=== PATIENT | female | born 1975 | race Caucasian/White ===

== ENCOUNTER 2017-12-21 02:20 | Inpatient (IN) | payer OTHER ==
[~2017-12-21] VITALS: Ht 157.5 cm; Wt 64.6 kg
[2017-12-21] VITALS (7 sets, daily range): BP systolic 116–143; BP diastolic 60–82; PULSE 74–88; RESP 12–20; TEMP 98–98.8; O2SAT 96–100
[~2017-12-21 02:20] MED LIST: Z.0.NO CURRENT MEDS
--- NOTE | 2017-12-21 04:49 | PD ---
HPI Chief Complaint: Patten act Time Seen by Provider: 04:35 Travel History International Travel<30 days: No Contact w/Intl Traveler<30days: No Traveled to known affect area: No History of Present Illness HPI 42-year-old female presents emergency department under Patten act by PD. The patient had contacted police advising in them her is trying to kill her with arsenic and heroin. She states that she is concerned that he is ever socializing in the house as well as putting in her drinks and food. Patient states that they are currently going through divorce. Her 2 children live at her parents house. Patient denies any suicidal or homicidal ideation. No toxic ingestions. She denies any medical complaints. She denies alcohol, drugs, tobacco. Denies . Patient does complain of increased urinary frequency and some urinary incontinence. PFSH Past Medical History Medical History: Denies Significant Hx Tetanus Vaccination: < 5 Years Past Surgical History Narrative Surgical Cholecystectomy, 1, uterine ablation Social History Alcohol Use: No Tobacco Use: No Substance Use: No Allergies-Medications (Allergen,Severity, Reaction): Coded Allergies: iodine (Unverified Allergy, Severe, hives and shortness of breath, 06/12/17 ) potassium iodide (Unverified Allergy, Severe, hives and shortness of breath, 06/12/17) povidone-iodine (Unverified Allergy, Severe, hives and shortness of breath , 06/12/17) shellfish derived (Unverified Allergy, Severe, hives, 06/12/17) sodium iodide (Unverified Allergy, Severe, hives and shortness of breath, 06/12/17) sodium iodide (Unverified Allergy, Severe, hives and shortness of breath, 06/12/17) Reported Meds & Prescriptions Reported Meds & Active Scripts Active No Active Prescriptions or Reported Medications Review of Systems General / Constitutional: No: Fever Eyes: No: Visual changes HENT: No: Headaches Cardiovascular: No: Chest Pain or Discomfort Respiratory: No: Shortness of Breath Gastrointestinal: No: Abdominal Pain Genitourinary: Positive: Urgency, Frequency, Incontinence, No: Dysuria Musculoskeletal: No: Pain Skin: No Rash Neurologic: No: Weakness Psychiatric: Positive: Anxiety, No: Depression, Suicidal Ideations, Disorder of Thought, Mood Disorder, Substance Abuse, Homicidal Ideation Endocrine: No: Polydipsia Hematologic/Lymphatic: No: Easy Bruising Physical Exam Narrative GENERAL: Well-nourished, well-developed patient. SKIN: Warm and dry. HEAD: Normocephalic and atraumatic. EYES: No scleral icterus. No injection or drainage. ENT: No nasal drainage noted. Mucous membranes pink. Airway patent. NECK: Supple, trachea midline. Moves head freely without obvious discomfort. CARDIOVASCULAR: Regular rate and rhythm without murmurs, gallops, or rubs. RESPIRATORY: Breath sounds equal bilaterally. No accessory muscle use. GASTROINTESTINAL: Abdomen soft, non-tender, nondistended. EXTREMITIES: No cyanosis or edema. BACK: Nontender without obvious deformity. No CVA tenderness. NEURO: Patient is alert and oriented. no sensorimotor deficits. Nonfocal. Normal speech. PSYCH: Patient is delusional. Patient states that her is aerosolizing heroin and arsenic. Data Data Last Documented VS Vital Signs Date Time Temp Pulse Resp B/P (MAP) Pulse Ox O2 Delivery O2 Flow Rate FiO2 12/21/17 04:47 98.7 74 12 119/61 (80) 96 12/21/17 04:45 Room Air Orders Orders Complete Blood Count With Diff (12/21/17 04:42) Comprehensive Metabolic Panel (12/21/17 04:42) Thyroid Stimulating Hormone (12/21/17 04:42) Urinalysis - C+S If Indicated (12/21/17 04:42) Ed Urine Pregnancytest Poc (12/21/17 04:42) Psych Screen (12/21/17 04:42) Drug Screen, Random Urine (12/21/17 04:42) Alcohol (Ethanol) (12/21/17 04:42) Labs Laboratory Tests Test 12/21/17 04:58 White Blood Count 13.4 TH/MM3 Red Blood Count 4.63 MIL/MM3 Hemoglobin 14.0 GM/DL Hematocrit 40.3 % Mean Corpuscular Volume 87.1 FL Mean Corpuscular Hemoglobin 30.3 PG Mean Corpuscular Hemoglobin Concent 34.8 % Red Cell Distribution Width 13.1 % Platelet Count 225 TH/MM3 Mean Platelet Volume 9.6 FL Neutrophils (%) (Auto) 60.1 % Lymphocytes (%) (Auto) 30.1 % Monocytes (%) (Auto) 6.1 % Eosinophils (%) (Auto) 3.0 % Basophils (%) (Auto) 0.7 % Neutrophils # (Auto) 8.0 TH/MM3 Lymphocytes # (Auto) 4.0 TH/MM3 Monocytes # (Auto) 0.8 TH/MM3 Eosinophils # (Auto) 0.4 TH/MM3 Basophils # (Auto) 0.1 TH/MM3 CBC Comment DIFF FINAL Differential Comment Urine Color YELLOW Urine Turbidity CLEAR Urine pH 6.0 Urine Specific [place] 1.027 Urine Protein TRACE mg/dL Urine Glucose (UA) NEG mg/dL Urine Ketones NEG mg/dL Urine Occult Blood NEG Urine Nitrite NEG Urine Bilirubin NEG Urine Urobilinogen LESS THAN 2.0 MG/DL Urine Leukocyte Esterase NEG Urine RBC 2 /hpf Urine WBC 1 /hpf Urine Squamous Epithelial Cells 1 /hpf Urine Calcium Oxalate Crystals OCC /hpf Urine Bacteria RARE /hpf Urine Hyaline Casts 1 /lpf Urine Mucus MOD /lpf Microscopic Urinalysis Comment CULT NOT INDICATED Blood Urea Nitrogen 10 MG/DL Creatinine 0.77 MG/DL Random Glucose 90 MG/DL Total Protein 7.2 GM/DL Albumin 3.2 GM/DL Calcium Level 8.0 MG/DL Alkaline Phosphatase 117 U/L Aspartate Amino Transf (AST/SGOT) 12 U/L Alanine Aminotransferase (ALT/SGPT) 17 U/L Total Bilirubin LESS THAN 0.1 MG/DL Sodium Level 138 MEQ/L Potassium Level 3.4 MEQ/L Chloride Level 104 MEQ/L Carbon Dioxide Level 26.0 MEQ/L Anion Gap 8 MEQ/L Estimat Glomerular Filtration Rate 83 ML/MIN Thyroid Stimulating Hormone 3rd Gen 1.510 uIU/ML Urine Opiates Screen POS Urine Barbiturates Screen NEG Urine Amphetamines Screen NEG Urine Benzodiazepines Screen NEG Urine Cocaine Screen NEG Urine Cannabinoids Screen NEG Ethyl Alcohol Level LESS THAN 3 MG/DL MDM Medical Decision Making Medical Screen Exam Complete: Yes Emergency Medical Condition: Yes Medical Record Reviewed: Yes Interpretation(s) Laboratory Tests Test 12/21/17 04:58 White Blood Count 13.4 TH/MM3 Red Blood Count 4.63 MIL/MM3 Hemoglobin 14.0 GM/DL Hematocrit 40.3 % Mean Corpuscular Volume 87.1 FL Mean Corpuscular Hemoglobin 30.3 PG Mean Corpuscular Hemoglobin Concent 34.8 % Red Cell Distribution Width 13.1 % Platelet Count 225 TH/MM3 Mean Platelet Volume 9.6 FL Neutrophils (%) (Auto) 60.1 % Lymphocytes (%) (Auto) 30.1 % Monocytes (%) (Auto) 6.1 % Eosinophils (%) (Auto) 3.0 % Basophils (%) (Auto) 0.7 % Neutrophils # (Auto) 8.0 TH/MM3 Lymphocytes # (Auto) 4.0 TH/MM3 Monocytes # (Auto) 0.8 TH/MM3 Eosinophils # (Auto) 0.4 TH/MM3 Basophils # (Auto) 0.1 TH/MM3 CBC Comment DIFF FINAL Differential Comment Urine Color YELLOW Urine Turbidity CLEAR Urine pH 6.0 Urine Specific [place] 1.027 Urine Protein TRACE mg/dL Urine Glucose (UA) NEG mg/dL Urine Ketones NEG mg/dL Urine Occult Blood NEG Urine Nitrite NEG Urine Bilirubin NEG Urine Urobilinogen LESS THAN 2.0 MG/DL Urine Leukocyte Esterase NEG Urine RBC 2 /hpf Urine WBC 1 /hpf Urine Squamous Epithelial Cells 1 /hpf Urine Calcium Oxalate Crystals OCC /hpf Urine Bacteria RARE /hpf Urine Hyaline Casts 1 /lpf Urine Mucus MOD /lpf Microscopic Urinalysis Comment CULT NOT INDICATED Blood Urea Nitrogen 10 MG/DL Creatinine 0.77 MG/DL Random Glucose 90 MG/DL Total Protein 7.2 GM/DL Albumin 3.2 GM/DL Calcium Level 8.0 MG/DL Alkaline Phosphatase 117 U/L Aspartate Amino Transf (AST/SGOT) 12 U/L Alanine Aminotransferase (ALT/SGPT) 17 U/L Total Bilirubin LESS THAN 0.1 MG/DL Sodium Level 138 MEQ/L Potassium Level 3.4 MEQ/L Chloride Level 104 MEQ/L Carbon Dioxide Level 26.0 MEQ/L Anion Gap 8 MEQ/L Estimat Glomerular Filtration Rate 83 ML/MIN Thyroid Stimulating Hormone 3rd Gen 1.510 uIU/ML Urine Opiates Screen POS Urine Barbiturates Screen NEG Urine Amphetamines Screen NEG Urine Benzodiazepines Screen NEG Urine Cocaine Screen NEG Urine Cannabinoids Screen NEG Ethyl Alcohol Level LESS THAN 3 MG/DL Differential Diagnosis MDM: High Differential diagnoses: Schizophrenia, schizoaffective disorder, bipolar, anxiety, depression, adjustment reaction, mood disorder NOS, ODD, depressive disorder NOS, dementia, dementia with agitation, psychosis NOS, substance induced mood disorder, DMDD, Asperger syndrome, infection,electrolyte abnormality, malingering. Narrative Course Mental health screening discussed with the patient. Psychiatric screen ordered. The patient has been medically cleared. This is medical clearance for psychiatric admission Diagnosis Primary Impression: Medical clearance for psychiatric admission Scripts No Active Prescriptions or Reported Meds Condition: Stable Willem Gooden Dec 21, 2017 04:49
[2017-12-21 05:33] LABS: BASOPHIL # 0.1 TH/MM3 (0-0.2); BASOPHIL % 0.7 % (0.0-2.0); EOSINOPHIL # 0.4 TH/MM3 (0-0.4); HEMATOCRIT 40.3 % (35.0-46.0); LYMPH % 30.1 % (9.0-44.0); MEAN CELL VOLUME 87.1 FL (80.0-100.0); MEAN CORPUSCULAR HEMOGLOBIN 30.3 PG (27.0-34.0); MEAN CORPUSCULAR HGB CONC 34.8 % (32.0-36.0); MEAN PLATELET VOLUME 9.6 FL (7.0-11.0); MONO % 6.1 % (0.0-8.0); MONOCYTE # 0.8 TH/MM3 (0-0.9); NEUT % 60.1 % (16.0-70.0); PLATELET COUNT 225 TH/MM3 (150-450); RED BLOOD COUNT 4.63 MIL/MM3 (4.00-5.30); RED CELL DISTRIBUTION WIDTH 13.1 % (11.6-17.2); WHITE BLOOD COUNT 13.4 TH/MM3 (4.0-11.0)
[2017-12-21 05:50] LABS: BACTERIA, URINE RARE /hpf; BILIRUBIN, URINE NEG (NEG); BLOOD, URINE NEG (NEG); CALCIUM OXALATE CRYSTALS,URINE OCC /hpf; GLUCOSE,URINE NEG (NEG); HYALINE CAST, URINE 1 /lpf (RARE); KETONE, URINE NEG (NEG); MUCUS URINE MOD /lpf (OCC); NITRITE,URINE NEG (NEG); SQUAMOUS EPITHELIAL CELL URINE 1 /hpf (0-5); URINE COLOR YELLOW (YELLW/STRAW); URINE LEUKOCYTE ESTERASE NEG (NEG)
[2017-12-21 06:02] LABS: ALBUMIN 3.2 GM/DL (3.4-5.0); AST (GOT) 12 U/L (15-37); BLOOD UREA NITROGEN 10 MG/DL (7-18); CHLORIDE 104 MEQ/L (98-107); CREATININE 0.77 MG/DL (0.50-1.00); GLOMERULAR FILTRATION RATE 83 ML/MIN (>89); GLUCOSE,RANDOM 90 MG/DL (74-106); SODIUM (NA) 138 MEQ/L (136-145)
[2017-12-21 06:12] LABS: ALKALINE PHOSPHATASE 117 U/L (45-117); ALT (GPT) 17 U/L (10-53); TOTAL BILIRUBIN ADULT LESS THAN 0.1 MG/DL (0.2-1.0); TOTAL PROTEIN 7.2 GM/DL (6.4-8.2)
--- NOTE | 2017-12-21 13:51 | PD ---
History of Present Illness Chief Complaint: Psychiatric Symptoms Time Seen by Provider: 15:30 Travel History International Travel<30 Days: No Contact w/Intl Traveler<30days: No Known affected area: No Legal Status Legal Status: Patten Act Patten Act Signed By: Ira De Oliveira History of Present Illness: History of Present Illness HPI 42-year-old , , female with no reported previous psychiatric history who presents emergency department under Patten act by PD. The Patten act alleges that the patient contacted the police to inform them that her was trying to kill her with heroin and arsenic. It also alleges that while they were there she stated that he was in back of them and that if they didn't help her she would kill herself. While the patient was in [facility] deputies arrived and served her with a [place] order petition by her mother and her . The order alleges some amongst other things that the patient is delusional, accuses and mother trying to kill her, that she has stopped all social activity including paying her bills, doing laundry, cooking and going to work. That she takes when he showers a day, smokes on believable amounts of cigarettes a day, not eating right were sleeping right, losing weight , believes that the [employer] has a report of the allegedly poisoning. The patient is seen in [facility]. She is alert and oriented. She is irritable and only minimally cooperative with this interview. She continues to believe that she is being poisoned by her and that he is having an affair. She denies suicidal or homicidal ideation. Denies feeling depressed. Denies any hallucinations. She is demanding to be discharge and refused to answer anymore questions. She has remained in her room isolative with no interaction with staff. EMR reviewed. No previous contact with [facility] psychiatry Department. Toxicology positive for opiates which are prescribed. Telephone call to Rajinder Mercado, patient's to obtain further information at [phone]. He states that they have been for over 20 years and that they had a brief separation over the summer. He admitted that he had an affair but that it was over and that him and the patient has been trying to work it out. He reports that for the past 2 weeks the patient has been increasingly agitated, not sleeping well, increase in the amount of arguing with him, stopped showing up for work and was therefore fired, stop pain the bills, told the family that she had cancer. He also states that she believes that the light bulbs in the house are cameras and that are recording her and she has tried to take all the light bulbs out of the house to bring him to the police station. She also believes that there are explosives in the home. The patient's mother, Juanis called the unit and I spoke with her. She tells me that the patient has no previous psychiatric history. In September she remembers the patient told her she saw Dr. Costello and was prescribed some medication but she is not aware of what arie was prescribed. She states that the patient has been recording herself and taking pictures of herself and would spend long hours just looking at that picture, that she takes multiple showers per day. That she talks about hearing a baby crying in the house, she believes that she is having an affair with her , not doing anything in the house and just staying in bed all day. [facility] Past Medical History Medical History: Denies Significant Hx Tetanus Vaccination: < 5 Years ?: Not Past Surgical History Surgical History: No Previous Surgery Psychiatric History Psychiatric History Hx Psychiatric Treatment: No previous history reported. No history of suicide attempts. History of Inpatient Treatment: No Guns or firearms in home: No Social History female. Lives with and -2 children. Currently unemployed. 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 Hx Alcohol Use: No Hx Tobacco Use: No Hx Substance Use: No Hx of Substance Use Treatment: No Family Psychiatric History Negative Allergies-Medications (Allergen,Severity, Reaction): Coded Allergies: iodine (Unverified Allergy, Severe, hives and shortness of breath, 06/12/17 ) potassium iodide (Unverified Allergy, Severe, hives and shortness of breath, 06/12/17) povidone-iodine (Unverified Allergy, Severe, hives and shortness of breath , 06/12/17) shellfish derived (Unverified Allergy, Severe, hives, 06/12/17) sodium iodide (Unverified Allergy, Severe, hives and shortness of breath, 06/12/17) sodium iodide (Unverified Allergy, Severe, hives and shortness of breath, 06/12/17) Reported Meds & Prescriptions Reported Meds & Active Scripts Active No Active Prescriptions or Reported Medications Review of Systems ROS Limitations: Uncooperative Mental Status Examination Appearance: Appropriate Consciousness: Alert Orientation: x4 Motor Activity: Normal gait Speech: Unremarkable Language: Adequate Fund of Knowledge: Adequate Attention and Concentration: Adequate Memory: Unremarkable Mood: Appropriate, Angry (at being here.) Affect: Appropriate Thought Process & Associations: Intact, Logical, Goal directed Thought Content: Appropriate Hallucination Type: None Delusion Type: None Suicidal Ideation: No Suicidal Plan: No Suicidal Intention: No Homicidal Ideation: No Homicidal Plan: No Homicidal Intention: No Insight: Fair Judgment: Adequate MDM Medical Decision Making Medical Record Reviewed: Yes Assessment/Plan 42-year-old , , female with no reported previous psychiatric history who presents emergency department under Patten act by PD. The Patten act alleges that the patient contacted the police to inform them that her was trying to kill her with heroin and arsenic. It also alleges that while they were there she stated that he was in back of them and that if they didn't help her she would kill herself. While the patient was in [facility] deputies arrived and served her with a [place] order petition by her mother and her . The order alleges some amongst other things that the patient is delusional, accuses and mother trying to kill her, that she has stopped all social activity including paying her bills, doing laundry, cooking and going to work. That she takes when he showers a day, smokes on believable amounts of cigarettes a day, not eating right were sleeping right, losing weight , believes that the [employer] has a report of the allegedly poisoning. The patient was only minimally cooperative in [facility]. She was very irritable. The remainder of the time here she was very isolative. Collateral information obtained from family members including her and her mother are concerning regarding a recent change in her behavior as described above. At this time the patient will be admitted to inpatient psychiatry for further observation, stabilization and initiation of treatment. Orders Orders Complete Blood Count With Diff (12/21/17 04:42) Comprehensive Metabolic Panel (12/21/17 04:42) Thyroid Stimulating Hormone (12/21/17 04:42) Urinalysis - C+S If Indicated (12/21/17 04:42) Ed Urine Pregnancytest Poc (12/21/17 04:42) Psych Screen (12/21/17 04:42) Drug Screen, Random Urine (12/21/17 04:42) Alcohol (Ethanol) (12/21/17 04:42) Diet Regular Basic (12/21/17 Breakfast) Diet Regular Basic (12/21/17 Lunch) Results Vital Signs Date Time Temp Pulse Resp B/P (MAP) Pulse Ox O2 Delivery O2 Flow Rate FiO2 12/21/17 10:00 88 16 116/60 (78) Room Air 12/21/17 08:15 98.3 86 18 143/82 (102) 100 Room Air 12/21/17 07:56 98.0 78 16 118/74 (89) 98 Room Air 12/21/17 04:47 98.7 74 12 119/61 (80) 96 12/21/17 04:45 98.7 74 12 119/61 (80) 96 Room Air Laboratory Tests Test 12/21/17 04:58 White Blood Count 13.4 Red Blood Count 4.63 Hemoglobin 14.0 Hematocrit 40.3 Mean Corpuscular Volume 87.1 Mean Corpuscular Hemoglobin 30.3 Mean Corpuscular Hemoglobin Concent 34.8 Red Cell Distribution Width 13.1 Platelet Count 225 Mean Platelet Volume 9.6 Neutrophils (%) (Auto) 60.1 Lymphocytes (%) (Auto) 30.1 Monocytes (%) (Auto) 6.1 Eosinophils (%) (Auto) 3.0 Basophils (%) (Auto) 0.7 Neutrophils # (Auto) 8.0 Lymphocytes # (Auto) 4.0 Monocytes # (Auto) 0.8 Eosinophils # (Auto) 0.4 Basophils # (Auto) 0.1 CBC Comment DIFF FINAL Differential Comment Urine Color YELLOW Urine Turbidity CLEAR Urine pH 6.0 Urine Specific [place] 1.027 Urine Protein TRACE Urine Glucose (UA) NEG Urine Ketones NEG Urine Occult Blood NEG Urine Nitrite NEG Urine Bilirubin NEG Urine Urobilinogen LESS THAN 2.0 Urine Leukocyte Esterase NEG Urine RBC 2 Urine WBC 1 Urine Squamous Epithelial Cells 1 Urine Calcium Oxalate Crystals OCC Urine Bacteria RARE Urine Hyaline Casts 1 Urine Mucus MOD Microscopic Urinalysis Comment CULT NOT INDICATED Blood Urea Nitrogen 10 Creatinine 0.77 Random Glucose 90 Total Protein 7.2 Albumin 3.2 Calcium Level 8.0 Alkaline Phosphatase 117 Aspartate Amino Transf (AST/SGOT) 12 Alanine Aminotransferase (ALT/SGPT) 17 Total Bilirubin LESS THAN 0.1 Sodium Level 138 Potassium Level 3.4 Chloride Level 104 Carbon Dioxide Level 26.0 Anion Gap 8 Estimat Glomerular Filtration Rate 83 Thyroid Stimulating Hormone 3rd Gen 1.510 Urine Opiates Screen POS Urine Barbiturates Screen NEG Urine Amphetamines Screen NEG Urine Benzodiazepines Screen NEG Urine Cocaine Screen NEG Urine Cannabinoids Screen NEG Ethyl Alcohol Level LESS THAN 3 Diagnosis Primary Impression: Medical clearance for psychiatric admission Additional Impression: Unspecified psychosis Admitting Information Admitting Physician Requests: Admit Condition: Stable Problem Qualifiers Rose Morillo Dec 21, 2017 13:51
[2017-12-21] MEDS ORDERED: Lortab PO (15:21)
[2017-12-21] MEDS ORDERED: ALUMINUM/MAGNESIUM/SIMETH 30 ML CUP PO PRN (19:00)
[2017-12-21] MEDS ORDERED: MAGNESIUM HYDROXIDE SUSP 30 ML CUP PO PRN (19:00)
[2017-12-22 04:58] VITALS: BP 122/71; PULSE 77; RESP 16; TEMP 98.7; O2SAT 98
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
[2017-12-22 12:24] LABS: AUTOMATED NEUTROPHIL # 12.5 TH/MM3 (1.8-7.7); BASOPHIL # 0.1 TH/MM3 (0-0.2); BASOPHIL % 0.5 % (0.0-2.0); EOSINOPHIL # 0.1 TH/MM3 (0-0.4); EOSINOPHIL % 0.7 % (0.0-4.0); HEMATOCRIT 44.7 % (35.0-46.0); LYMPH % 16.6 % (9.0-44.0); LYMPHOCYTE # 2.6 TH/MM3 (1.0-4.8); MEAN CELL VOLUME 88.3 FL (80.0-100.0); MEAN CORPUSCULAR HEMOGLOBIN 29.6 PG (27.0-34.0); MEAN CORPUSCULAR HGB CONC 33.5 % (32.0-36.0); MEAN PLATELET VOLUME 9.4 FL (7.0-11.0); MONO % 3.8 % (0.0-8.0); MONOCYTE # 0.6 TH/MM3 (0-0.9); NEUT % 78.4 % (16.0-70.0); PLATELET COUNT 289 TH/MM3 (150-450); RED BLOOD COUNT 5.07 MIL/MM3 (4.00-5.30); RED CELL DISTRIBUTION WIDTH 13.5 % (11.6-17.2); WHITE BLOOD COUNT 15.9 TH/MM3 (4.0-11.0)
--- NOTE | 2017-12-22 12:44 | EKG ---
Date Performed: 12/22/2017 Time Performed: 09:32:02 PTAGE: 42 years EKG: Sinus rhythm RIGHT AXIS DEVIATION ABNORMAL ECG NO PREVIOUS TRACING DOCTOR: Ag Mcguire Interpretating Date/Time 12/22/2017 12:42:30
[2017-12-22 12:48] LABS: BICARBONATE 26.5 MEQ/L (21.0-32.0); BLOOD UREA NITROGEN 10 MG/DL (7-18); CALCIUM 8.4 MG/DL (8.5-10.1); CHLORIDE 107 MEQ/L (98-107); CREATININE 0.68 MG/DL (0.50-1.00); GLOMERULAR FILTRATION RATE 95 ML/MIN (>89); GLUCOSE,RANDOM 92 MG/DL (74-106); SODIUM (NA) 140 MEQ/L (136-145)
[2017-12-22 12:49] LABS: CHOLESTEROL 169 MG/DL (120-200)
[2017-12-22 12:57] LABS: WESTERGREN SEDIMENTATION RATE 4 mm/hr (0-20)
[2017-12-22 13:14] LABS: CHOLESTEROL/ HDL RATIO 4.15 RATIO; FREE T4 0.97 NG/DL (0.76-1.46); HDL CHOLESTEROL 40.7 MG/DL (40.0-60.0); LDL CHOLESTEROL 103 MG/DL (0-99); TRIGLYCERIDES 129 MG/DL (42-150)
[2017-12-22 14:29] LABS: HEMOGLOBIN A1C 5.5 % (4.3-6.0)
[2017-12-22 18:07] VITALS: BP 130/69; PULSE 79; RESP 15; TEMP 99.4; O2SAT 100
[2017-12-22] MEDS: traZODone HCL 50 MG TAB PO PRN (21:20)
[2017-12-22] MEDS: ACETAMINOPHEN 325 MG TAB PO PRN (21:21)
[2017-12-23 05:05] VITALS: BP 111/64; PULSE 71; RESP 16; TEMP 97.6; O2SAT 98
--- NOTE | 2017-12-23 14:41 | RADRPT ---
EXAM DATE/TIME: 12/23/2017 14:18 [facility] COMPARISON: No previous studies available for comparison. INDICATIONS : Psychosis. MEDICAL HISTORY : None. SURGICAL HISTORY : None. ENCOUNTER: Initial ACUITY: 3 day PAIN SCORE: 0/10 LOCATION: cranial TECHNIQUE: Multiplanar, multisequence MRI of the brain was performed without contrast. FINDINGS: CEREBRUM: The ventricles are normal for age. No evidence of midline shift, mass lesion, hemorrhage or acute in farction. No extraaxial fluid collections are seen. The pituitary gland and suprasellar cistern are normal in configuration. WHITE MATTER: No significant signal abnormalities are seen in the white matter. POSTERIOR FOSSA: The cerebellum and brainstem are intact. The 4th ventricle is midline. The cerebellopontine angle is unremarkable. The cerebellar tonsils are normal in position. DIFFUSION IMAGING: No focal areas of restricted diffusion are seen. No evidence of acute infarction. EXTRACRANIAL: The visualized portions of the orbits and paranasal sinuses are unremarkable. CONCLUSION: Normal examination for a patient of this age. Romero Lopez MD on December 23, 2017 at 14:38 Board Certified Radiologist. This report was verified electronically.
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
[2017-12-23 16:42] VITALS: BP 118/67; PULSE 68; RESP 16; TEMP 97.7
[2017-12-23] MEDS: hydrOXYzine HCL 50 MG TAB PO PRN (18:42)
[2017-12-23] MEDS: traZODone HCL 50 MG TAB PO PRN (21:05)
[2017-12-23] MEDS: ACETAMINOPHEN 325 MG TAB PO PRN (21:06)
[2017-12-24] MEDS: hydrOXYzine HCL 50 MG TAB PO PRN (08:26)
--- NOTE | 2017-12-24 14:06 | HHI.PYPN ---
Subjective Remarks Patient seen in her room with nurse, chart review, patient discussed with nurse. Patient compliant with medications. Patient alert angry irritable appearing female. Her no insight into the reasons why she is here acknowledges being different that she has her own way of responding to things be leaving expressing her feelings and her behaviors. She feels her and her mother during collusion because she inherited money from her father recently. She also feels that she is being monitored in her room and being recorded. She denied any past psychiatric history, denies any suicidality, voices or visions. However she became more and more angry paranoid and threatening as I challenged her beliefs. Patient was initially seen by our nurse practitioner followed by Dr. Sol, followed by Dr. Boss. Dr. Boss felt patient behavior was so out of control that she recently level of involuntary placement and she did the first petition supporting [facility]. I agree with Dr. Boss. Patient does meet criteria for involuntary psychiatric hospitalization at this time thus I'll cosign second opinion petition supporting [facility]. For now will continue her observation attempt to communicate further with patient's and family Review of Systems Except as stated in HPI: all other systems reviewed are Neg Mental Status Examination Appearance: Appropriate Consciousness: Alert Orientation: x4 Motor Activity: Normal gait Speech: Pressured, Rapid Language: Adequate Fund of Knowledge: Adequate Attention and Concentration: Adequate Memory: Unremarkable Mood: Angry, Manic Affect: Other (increase range and intensity) Thought Process & Associations: Linear Thought Content: Delusional Hallucination Type: None Delusion Type: Paranoid, Other (grandiose) Suicidal Ideation: No Suicidal Plan: No Suicidal Intention: No Homicidal Ideation: No Homicidal Plan: No Homicidal Intention: No Insight: Poor Judgment: Poor Results Vitals/IOs Vital Signs Date Time Temp Pulse Resp B/P (MAP) Pulse Ox O2 Delivery O2 Flow Rate FiO2 12/23/17 16:42 97.7 68 16 118/67 (84) 12/23/17 05:05 98 12/21/17 18:44 Room Air Assessment & Plan Problem List: (1) Unspecified psychosis ICD Codes: F29 - Unspecified psychosis not due to a substance or known physiological condition Status: Acute Assessment & Plan Estimated LOS: days patient is quite psychotic with manic flavor here she is quite paranoid and delusional. I did sign second opinion petition supporting [facility]. For now continue observation assessment Justification for Cont. Inpt. If this time patient decompensated placed in a lower level of care Discharge Planning To be determined Stephon Mayberry MD Dec 24, 2017 14:06
[2017-12-24 14:42] LABS: ANA SCREEN NEG (NEG)
[2017-12-24 18:06] VITALS: BP 122/57; PULSE 75; RESP 18; TEMP 98.8; O2SAT 99
[2017-12-24] MEDS: traZODone HCL 50 MG TAB PO PRN (21:06)
[2017-12-25 04:46] VITALS: BP 110/63; PULSE 80; RESP 16; TEMP 97.9; O2SAT 98
[2017-12-25] MEDS: LITHIUM CARBONATE 300 MG TAB PO SCH ×2 (15:45→20:51)
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
[2017-12-25 18:28] VITALS: BP 112/65; PULSE 80; RESP 16; TEMP 98; O2SAT 99
[2017-12-25] MEDS: traZODone HCL 50 MG TAB PO PRN (20:51)
[2017-12-26 06:12] VITALS: BP 134/66; PULSE 86; RESP 17; TEMP 98; O2SAT 99
[2017-12-26] MEDS: ACETAMINOPHEN 325 MG TAB PO PRN (08:03)
[2017-12-26] MEDS: LITHIUM CARBONATE 300 MG TAB PO SCH ×2 (08:03→21:18)
--- NOTE | 2017-12-26 11:31 | HHI.PYPN ---
Subjective Remarks Patient seen in the [facility] with nurse Tate, chart reviewed patient discussed with nurse. Patient remains calm cooperative compliant with medication. There continues some mild her rationalization of her behaviors. Though I reassured her that there is no reason to feel guilty shows done anything wrong with having mental health issues. She states she is willing to be compliant with her medications are compliant with outpatient psychiatric follow-up. She denies suicidality homicidality voices or visions. She is still somewhat fixed on her belief of the infidelity of her . However she is doing better she is calmer. At this time she does not meet Patten act criteria. I will lift Patten act allow patient to sign voluntary. Plan is to check a lithium level on Thursday 12/28 and perhaps adjust the dose of lithium at that time. Patient may be allowed to be discharged on that date she states she will go with and stay with her mother. With follow-up psychiatric services of the community within the next week Review of Systems Except as stated in HPI: all other systems reviewed are Neg Mental Status Examination Appearance: Appropriate Consciousness: Alert Orientation: x4 Motor Activity: Normal gait Speech: Pressured, Rapid Language: Adequate Fund of Knowledge: Adequate Attention and Concentration: Adequate Memory: Unremarkable Mood: Sad, Other (restricted) Affect: Other (decreased range and intensity) Thought Process & Associations: Linear Thought Content: Delusional Hallucination Type: None Delusion Type: Paranoid Suicidal Ideation: No Suicidal Plan: No Suicidal Intention: No Homicidal Ideation: No Homicidal Plan: No Homicidal Intention: No Insight: Poor Judgment: Poor Results Vitals/IOs Vital Signs Date Time Temp Pulse Resp B/P (MAP) Pulse Ox O2 Delivery O2 Flow Rate FiO2 12/26/17 06:12 98.0 86 17 134/66 (88) 99 Assessment & Plan Problem List: (1) Unspecified psychosis ICD Codes: F29 - Unspecified psychosis not due to a substance or known physiological condition Status: Acute (2) Bipolar disorder, curr episode mixed, severe, with psychotic features ICD Codes: F31.64 - Bipolar disorder, current episode mixed, severe, with psychotic features Status: Chronic Assessment & Plan Estimated LOS: days patient remains somewhat calm at times mildly tearful. Though showing some insight. Compliant medication will lift [place] act allow patient to sign voluntary. Plan is to check lithium level on 12/28 with possible discharge on that day possible medication adjustment on that date, patient states she will be going to living with the mother. Follow-up psychiatric services in the community Justification for Cont. Inpt. At this time patient will decompensate the placed a lower level of care Discharge Planning Consider discharge to state with mother Stephon Mayberry MD Dec 26, 2017 11:31
--- NOTE | 2017-12-26 16:04 | PD.TTN ---
Patient Problems 1. Discharge planning 2. Medication compliance 3. Knowledge deficit 4. Lack of coping skills Progress Toward Goals Provider Present: Dr. Soy Watts Provider Input: admitted psychotic and manic, next day better but still depressed, need to check lithium levels Psychiatric Counselors Present: Antonio Hall Jr., [facility] Psych Therapist Input: met reports she will either live mother or brother upon discharge Group Spec/RT/OT/VELAZQUEZ Input: pt rarely attends group Antonio Hall Jr, [facility] Dec 26, 2017 16:04
[2017-12-26 18:04] VITALS: BP 128/71; PULSE 77; RESP 18; TEMP 98.2; O2SAT 99
[2017-12-26] MEDS: traZODone HCL 50 MG TAB PO PRN (21:17)
[2017-12-26] MEDS: hydrOXYzine HCL 50 MG TAB PO PRN (22:36)
[2017-12-27 05:18] VITALS: BP 117/59; PULSE 68; RESP 16; TEMP 97.8; O2SAT 97
[2017-12-27] MEDS: LITHIUM CARBONATE 300 MG TAB PO SCH ×2 (08:14→20:14)
--- NOTE | 2017-12-27 12:29 | HHI.PYPN ---
Subjective Remarks Patient se in [place] with nurse Deidra, chart review, patient discussed with nurse. Patient is calm cooperative though the degree of intensity. She has been no behavioral problem Ms. processing things fairly well. She is aware of possible discharge tomorrow once a lithium level was drawn and results received. However there continues to be some mild reluctance to accept fully the mental health diagnosis. In any event of present time she is doing well continues to be compliant with medicine. Focal is welcome sitter discharge tomorrow after getting results of lithium level Review of Systems Except as stated in HPI: all other systems reviewed are Neg Mental Status Examination Appearance: Appropriate Consciousness: Alert Orientation: x4 Motor Activity: Normal gait Speech: Pressured, Rapid Language: Adequate Fund of Knowledge: Adequate Attention and Concentration: Adequate Memory: Unremarkable Mood: Sad, Other (restricted) Affect: Other (decreased range and intensity) Thought Process & Associations: Linear Thought Content: Delusional Hallucination Type: None Delusion Type: Paranoid Suicidal Ideation: No Suicidal Plan: No Suicidal Intention: No Homicidal Ideation: No Homicidal Plan: No Homicidal Intention: No Insight: Poor Judgment: Poor Results Vitals/IOs Vital Signs Date Time Temp Pulse Resp B/P (MAP) Pulse Ox O2 Delivery O2 Flow Rate FiO2 12/27/17 05:18 97.8 68 16 117/59 (72) 97 Assessment & Plan Problem List: (1) Unspecified psychosis ICD Codes: F29 - Unspecified psychosis not due to a substance or known physiological condition Status: Acute (2) Bipolar disorder, curr episode mixed, severe, with psychotic features ICD Codes: F31.64 - Bipolar disorder, current episode mixed, severe, with psychotic features Status: Chronic Assessment & Plan Estimated LOS: days patient continues to stabilize, did complain of some mild sleep disturbances last night but does not wish anything special for it. Will be getting the to the level tomorrow morning consider discharge after getting results Justification for Cont. Inpt. At this time patient decompensated placed a lower level of care Discharge Planning Return home with family Stephon Mayberry MD Dec 27, 2017 12:29
[2017-12-27 17:35] VITALS: BP 119/76; PULSE 77; RESP 17; TEMP 99.4; O2SAT 100
[2017-12-28 05:00] VITALS: BP 111/67; PULSE 78; RESP 16; TEMP 97.9; O2SAT 98
[2017-12-28] MEDS: LITHIUM CARBONATE 300 MG TAB PO SCH (11:24)
[2017-12-28] MEDS ORDERED: LITH150C PO (12:30)
[2017-12-28] MEDS ORDERED: TRAZ50TA12 PO (12:30)
--- NOTE | 2017-12-28 12:43 | HHI.DS ---
Psychiatry Discharge Summary Inpatient Psychiatric care?: Yes Advance Directive: No Reason Not Provided: declined Mental Health AdvanceDirective: No Health Care Proxy: No Admission Admission Date Dec 21, 2017 at 18:58 Admission Diagnosis: (1) Bipolar disorder, curr episode mixed, severe, with psychotic features ICD Code: F31.64 - Bipolar disorder, current episode mixed, severe, with psychotic features Brief History Please see initial psychiatric evaluation dictated by Dr. Ruddy Sol Tobacco Use In Past 30 Days: 5 or More Cigarettes/Day Alcohol Use: Never Hospital Course Patient's hospital course was essentially unremarkable. Her initial presentation with justine anger irritability in psychosis resolved quickly with the milieu. He showed some markedly improved insight and behaviors. She is able to process her behaviors. She has been compliant with her medication. She now denies suicidality homicidality voices or visions. Continues to learn about her disease and her behavior. At this time patient will order meets criteria for inpatient psychiatric hospitalization. Initial lithium blood level on 150 mg twice a day is 0.2. Patient to be discharged today to herself. Will increase lithium to 150 mg a.m. 300 mg at bedtime and suggest a lithium level within one week. Also to follow-up with [facility] outpatient medication management within 7-10 days. Patient also be absolute abstinence. With attempts at keeping a regular sleep wake cycle and schedule Results Blood Pressure 111 / 67 Vital Signs Date Time Temp Pulse Resp B/P (MAP) Pulse Ox O2 Delivery O2 Flow Rate FiO2 12/28/17 05:00 97.9 78 16 111/67 (82) 98 Laboratory Tests Test 12/28/17 08:47 [place] Level 0.2 MEQ/L (0.5-1.5) Laboratory Results Test 12/22/17 11:17 12/28/17 08:47 Cholesterol Level 169 MG/DL (120-200) HDL Cholesterol 40.7 MG/DL (40.0-60.0) Hemoglobin A1c 5.5 % (4.3-6.0) LDL Cholesterol 103 MG/DL (0-99) Triglycerides Level 129 MG/DL (42-150) [place] Level 0.2 MEQ/L (0.5-1.5) Summary of Major Lab Results [place] blood level drawn this a.m. is 0.2 Summary of Procedures None done Imaging Last Impressions Brain MRI 12/23/17 0000 Signed Impressions: Service Date/Time: Saturday, December 23, 2017 14:18 - CONCLUSION: Normal examination for a patient of this age. Romero Lopez MD Pending results at discharge: No Medications # of Antipsychotic meds at D/C: 0 Approp Antipsych med options 1 - Minimum of three failed multiple trials of monotherapy. 2 - Documented plan to taper to monotherapy due to previous use of multiple meds OR cross-taper in progress at D/C. 3 - Documentation of augmentation of Clozapine. 4 - Justification other than those listed in allowable values 1-3, document here : Discharge Discharge Date: Dec 28, 2017 Discharge Diagnosis: (1) Bipolar disorder, curr episode mixed, severe, with psychotic features Diagnosis: Principal ICD Code: F31.64 - Bipolar disorder, current episode mixed, severe, with psychotic features Status: Chronic Pt Condition on Discharge: Stable Discharge Disposition: Discharge Home Discharge Instructions Diet Instructions: As Tolerated, No Restrictions Activities you can perform: Regular-No Restrictions Scheduled Appointment: [facility] Discharge Time > 30 minutes Mental Status Examination Appearance: Appropriate Consciousness: Alert Orientation: x4 Motor Activity: Normal gait Speech: Pressured, Rapid Language: Adequate Fund of Knowledge: Adequate Attention and Concentration: Adequate Memory: Unremarkable Mood: Sad, Other (restricted) Affect: Other (decreased range and intensity) Thought Process & Associations: Linear Thought Content: Delusional Hallucination Type: None Delusion Type: Paranoid Suicidal Ideation: No Suicidal Plan: No Suicidal Intention: No Homicidal Ideation: No Homicidal Plan: No Homicidal Intention: No Insight: Poor Judgment: Poor Discharge/Advance Care Plan Health Problems: (1) Unspecified psychosis (2) Bipolar disorder, curr episode mixed, severe, with psychotic features Goals to promote your health * To prevent worsening of your condition and complications * To maintain your health at the optimal level Directions to meet your goals Take your medications as prescribed Follow your dietary instruction Follow activity as directed Keep your appointments as scheduled Take your immunizations and boosters as scheduled If your symptoms worsen call your PCP, if no PCP go to Urgent Care Center or Emergency Room For / questions related to your inpatient stay or results of tests pending at discharge, please contact Dr. Stephon Mayberry at Smoking is Dangerous to Your Health. Avoid second hand smoking Stephon Mayberry MD Dec 28, 2017 12:43
== END 2017-12-28 15:50 | disposition home or self-care (01) | DRG 885 ==
LOC: NEPD 02:20 → NEDA 18:58 → H260 21:13
PROVIDERS: ADMIT Psychiatry & Neurology Psychiatry; ATTEND Psychiatry & Neurology Psychiatry
DX: F31.64 Bipolar disorder, current episode mixed, severe, with psychotic features (principal); E87.6 Hypokalemia; F17.210 Nicotine dependence, cigarettes, uncomplicated; D72.829 Elevated white blood cell count, unspecified; Z81.8 Family history of other mental and behavioral disorders
CPT/HCPCS: 70551; 80048; 80053; 80061; 80178; 80307; 81001; 82607; 83036; 84439; 84443; 84703; 85025; 85652; 86038; 86592; 86703; 93005